=== PATIENT | female | born 1985 ===

== ENCOUNTER 2017-10-09 13:33 | Emergency (ER) | payer OTHER ==
--- NOTE | 2017-10-09 15:14 | ED PDOC ---
Arrival/HPI - General Chief Complaint: Lower Extremity Problem/Injury Time Seen by Provider: 10/09/17 14:26 Historian: Patient - History of Present Illness Narrative History of Present Illness (Text): 10/09/17 15:12 32yo female with no PMhx present with pain to her left great toe. States she hit the toe against her bed on Monday. came to ED today for the persistent pain. did not take any medication for the pain. Past Medical History - Provider Review Nursing Documentation Reviewed: Yes - Infectious Disease Hx of Infectious Diseases: None - Psychiatric Hx Substance Use: No Family/Social History - Physician Review Nursing Documentation Reviewed: Yes Family/Social History: Unknown Family HX Smoking Status: Never Smoked Hx Alcohol Use: No Hx Substance Use: No Allergies/Home Meds Allergies/Adverse Reactions: Allergies No Known Allergies Allergy (Verified 10/09/17 14:23) Review of Systems - Physician Review All systems were reviewed & negative as marked: Yes - Review of Systems Constitutional: Normal Eyes: Normal ENT: Normal Respiratory: Normal Cardiovascular: Normal Gastrointestinal: Normal Genitourinary Female: Normal Musculoskeletal: Arthralgias (Left 5th great toe) Skin: Normal Neurological: Normal Endocrine: Normal Hemo/Lymphatic: Normal Psychiatric: Normal Physical Exam Vital Signs Reviewed: Yes Vital Signs Temp Pulse Resp BP Pulse Ox 10/09/17 14:16 98.1 F 70 16 118/70 99 Temperature: Afebrile Blood Pressure: Normal Pulse: Regular Respiratory Rate: Normal Appearance: Positive for: Well-Appearing, Non-Toxic, Comfortable Pain Distress: None Mental Status: Positive for: Alert and Oriented X 3 - Systems Exam Head: Present: Atraumatic, Normocephalic Pupils: Present: PERRL Extroacular Muscles: Present: EOMI Conjunctiva: Present: Normal Mouth: Present: Moist Mucous Membranes Neck: Present: Normal Range of Motion Respiratory/Chest: Present: Clear to Auscultation, Good Air Exchange. No: Respiratory Distress, Accessory Muscle Use Cardiovascular: Present: Regular Rate and Rhythm, Normal S1, S2. No: Murmurs Abdomen: Present: Normal Bowel Sounds. No: Tenderness, Distention, Peritoneal Signs Back: Present: Normal Inspection Upper Extremity: Present: Normal Inspection. No: Cyanosis, Edema Lower Extremity: Present: NORMAL PULSES, Normal ROM, Tenderness (Left 5th toe), Swelling (Left 5th toe), Erythema (Left 5th toe), Neurovascularly Intact. No: Edema Neurological: Present: GCS=15, CN II-XII Intact, Speech Normal Skin: Present: Warm, Dry, Normal Color. No: Rashes Psychiatric: Present: Alert, Oriented x 3, Normal Insight, Normal Concentration Medical Decision Making ED Course and Treatment: 10/09/17 15:50 Left foot xray - No acute fracture noted Toe george tapped. 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 Rx of Ibuprofen 600m given. - RAD Interpretation Radiology Orders: 10/09/17 14:26 FOOT LEFT 5TH DIGIT (TOE) [RAD] Stat - Medication Orders Current Medication Orders: Discontinued Medications Ibuprofen (Motrin Tab) 600 mg PO STAT STA Stop: 10/09/17 15:15 Last Admin: 10/09/17 15:46 Dose: 600 mg MAR Pain/Vitals Document 10/09/17 15:46 [facility] (Rec: 10/09/17 15:47 [facility]-[id number]) Pain Reassessment Is This A Pain ReAssessment? Yes Sleep Is patient sleeping during reassessment? No Presence of Pain Presence of Pain Yes Disposition/Present on Arrival - Present on Arrival Any Indicators Present on Arrival: No History of DVT/PE: No History of Uncontrolled Diabetes: No Urinary Catheter: No History of Decub. Ulcer: No History Surgical Site Infection Following: None - Disposition Have Diagnosis and Disposition been Completed?: Yes Diagnosis: Toe injury Disposition: HOME/ ROUTINE Disposition Time: 15:50 Patient Plan: Discharge Condition: STABLE Discharge Instructions (ExitCare): Arthralgia (ED) Additional Instructions: Apply ice to area. follow up with a [employer] Operator Return to ED for any new symptoms Prescriptions: Ibuprofen [Motrin Tab] 600 mg PO Q6 #20 tab Referrals: Shana Villa MD [Primary Care Provider] - Follow up with primary Eliu Allen DPM [Staff Provider] - Follow up with primary Forms: [employer] (Sinhala)
--- NOTE | 2017-10-09 15:46 | RAD ---
PROCEDURE: Left Foot and 5th digit Radiographs. HISTORY: toe pain s/p trauma COMPARISON: None. FINDINGS: BONES: Normal. No fracture. JOINTS: Normal. SOFT TISSUES: Normal. OTHER FINDINGS: None. IMPRESSION: Negative study
[2017-10-09 16:16] VITALS: BP 120/68; PULSE 68; RESP 18; TEMP 98; O2SAT 100
== END 2017-10-09 16:19 | disposition home or self-care (01) ==
LOC: MERGE 13:33 → ED 13:33
DX: S99.922A Unspecified injury of left foot, initial encounter (principal); W22.03XA Walked into furniture, initial encounter